=== PATIENT | male | born 1950 | race Caucasian/White ===

== ENCOUNTER 2016-09-12 11:58 | Day surgery (SDC) | payer MEDICARE, BC ==
--- NOTE | 2016-09-12 10:21 | History and Physical Report ---
CHIEF COMPLAINT/HISTORY OF CHIEF COMPLAINT: This patient with a history of an intractable lumbar radiculitis presents today for spinal cord stimulator replacement after successful trial. PAST MEDICAL HISTORY: Noncontributory. PAST SURGICAL HISTORY: Noncontributory. MEDICATIONS ON ADMISSION: List to be provided. ALLERGIES: FAMILY/PSYCHOSOCIAL HISTORY: SYSTEMS REVIEW: The patient is appropriate in no acute distress. The remainder of the systems review is noncontributory. PHYSICAL EXAMINATION: Height and weight are not known. Vital signs are not available. HEENT: Within normal limits. LUNGS: Clear. HEART: Regular rate and rhythm. ABDOMEN: Nontender. MUSCULOSKELETAL: Examination of the musculoskeletal system shows pain and tenderness of the lumbar spine. Range of motion produces pain into the hips and legs bilaterally. Ambulation - No assistive device utilized. NEUROLOGIC: Cranial nerves are intact. IMPRESSION: LUMBAR RADICULITIS, ICD10 CODE M54.16 AND M54.17. PLAN: The patient is here for implantation of a permanent spinal cord stimulator after the failure of all therapies and the success of the trial. The potential risks, side effects, and complications have all been carefully reviewed. He has been provided with information by way of the handle finisher and the office and clinic which explained the potential risks including dural puncture, nerve root injury and spinal headache. He understands the risks and has consented. We will implant the device on an outpatient basis although an overnight stay will be evaluated. REECE LORENZO D.O. Date & Time JOB NUMBER: [id number] MTDD
[~2016-09-12 11:58] MED LIST: ACETAMINOPHEN 1000MG/100 ML PREMIX IV ONE; ACETAMINOPHEN 325 MG TAB PO PRN; AL HYDROX/MAG HYDROX 30ML UD PO PRN; CEFAZOLIN 2 Gram 50 ML IVPB ONE; DIPHENHYDRAMINE HCL 25 MG CAPSULE PO PRN; DIPHENHYDRAMINE HCL IV 50 MG/ML VIAL IVP PRN; FAMOTIDINE 20MG TABLET PO ONE; HYDROCODONE/APAP 7.5/325MG TABLET PO PRN; HYDROMORPHONE HCL 2 MG/ML VIAL IM PRN; MECLIZINE 25 MG TABLET PO ONE; METOCLOPRAMIDE 10 MG TABLET PO ONE; METOCLOPRAMIDE 10 MG TABLET PO PRN; METOCLOPRAMIDE HCL 10 MG/2 ML VIAL IVP PRN; OXYCODONE/APAP 10MG-325MG TABLET PO PRN; SENNOSIDES/DOCUSATE SODIUM UD CAPSULE PO PRN; TEMAZEPAM 15 MG CAPSULE PO PRN
[2016-09-12] MEDS ORDERED: BUPIVACAINE 0.5% W/EPI MPF 30 ML VIAL IVP ONE (14:00)
[2016-09-12] MEDS ORDERED: FENTANYL PF 100MCG/2ML VIAL IV ONE (14:00)
[2016-09-12] MEDS ORDERED: *PACU ONLY* KETAMINE HCL 10 MG/ML (20ML) VIAL IV ONE (14:00)
[2016-09-12] MEDS ORDERED: LIDOCAINE 1% W/EPI 1:200,000 MPF 30ML SQ ONE (14:00)
[2016-09-12] MEDS ORDERED: PROPOFOL 10 MG/ML VIAL IV ONE (14:00)
[2016-09-12] MEDS ORDERED: LIDOCAINE 2% MDV (20MG/ML) 20ML VIAL IV ONE (14:00)
[2016-09-12] MEDS ORDERED: CEFAZOLIN 1G VIAL IM ONE (14:00)
[2016-09-12] MEDS ORDERED: FLUMAZENIL 1MG/10ML VIAL IV ONE (14:00)
[2016-09-12] MEDS ORDERED: MIDAZOLAM HCL 2MG/2ML VIAL IV ONE (14:00)
[2016-09-12] MEDS: HYDROMORPHONE HCL 1 MG/ML CPJ IM PRN (16:42)
[2016-09-12] MEDS: GABAPENTIN 300 MG CAPSULE PO SCH ×2 (17:19→22:21)
[2016-09-12] MEDS: 0.9 % SODIUM CHLORIDE 10ML SYR IVP SCH ×2 (17:22→22:55)
[2016-09-12] MEDS: OXYCODONE/APAP 10MG-325MG TABLET PO PRN (20:19)
[2016-09-12] MEDS ORDERED: SIMVASTATIN 20 MG TABLET PO SCH (22:00)
[2016-09-12] MEDS ORDERED: DULOXETINE HCL 30 MG CAPSULE.DR PO SCH (22:00)
[2016-09-12] MEDS: CEFAZOLIN 2 Gram 50 ML IVPB SCH (22:21)
[2016-09-13] MEDS: OXYCODONE/APAP 10MG-325MG TABLET PO PRN ×2 (02:40→10:41)
[2016-09-13] MEDS: HYDROMORPHONE HCL 1 MG/ML CPJ IM PRN (04:33)
[2016-09-13] MEDS: CEFAZOLIN 2 Gram 50 ML IVPB SCH ×2 (06:17→12:23)
[2016-09-13] MEDS: 0.9 % SODIUM CHLORIDE 10ML SYR IVP SCH ×2 (06:50→10:42)
[2016-09-13] MEDS ORDERED: BUPROPION HCL 150 MG TAB.SR.12H PO SCH (10:00)
[2016-09-13] MEDS: GABAPENTIN 300 MG CAPSULE PO SCH (10:40)
--- NOTE | 2016-09-13 15:33 | Operative Note - Ferro ---
DATE OF SURGERY: 09/12/16 PREOPERATIVE DIAGNOSIS: LUMBAR RADICULITIS, ICD-10 CODE = M54.16 AND M54.17. OPERATION: 1. FLUOROSCOPICALLY-GUIDED EPIDURAL ACCESS T12-L1 RIGHT OF THE MIDLINE. PLACEMENT OF SPINAL CORD STIMULATOR LEAD 1, A [employer] INFINION 16 WITH 16 ELECTRODES POSITIONED LEFT T7. 2. COMPLEX PROGRAMMING LEAD 1, 20 MINUTES. 3. FLUOROSCOPICALLY-GUIDED EPIDURAL ACCESS T11-12. PLACEMENT OF SPINAL CORD STIMULATOR LEAD 2, A [employer] 16 WITH 16 ELECTRODES POSITIONED RIGHT, T7. 4. COMPLEX PROGRAMMING LEAD 2, 20 MINUTES. 5. INCISION, SUBCUTANEOUS DISSECTION, AND ANCHORING OF LEAD 1 AND LEAD 2 TO SUPRASPINOUS FASCIA USING [employer] LOCKING ANCHORS. 6. INCISION, SUBCUTANEOUS DISSECTION, AND CREATION OF A SUBCUTANEOUS POUCH AT RIGHT POSTERIOR GLUTEAL MARGIN FOR PLACEMENT OF GENERATOR IDENTIFIED [employer] PROGRAMMABLE RECHARGEABLE. 7. TUNNELING BETWEEN POUCHES, PLACEMENT OF EXTERNAL PORTION OF LEAD 1 AND LEAD 2 INTO GENERATOR POUCH, EACH LEAD INTERFACED WITH A BIFURCATED EXTENSION, EACH BIFURCATED EXTENSION INTERFACED TO GENERATOR. 8. PLACEMENT OF GENERATOR POUCH SECURING TO POSTERIOR FASCIA USING NONABSORBABLE SUTURE. PLACEMENT OF LEADS INTO POUCH. 9. CLOSURE OF INCISIONS VICRYL FOR FASCIA AND A RUNNING SUBCUTICULAR VICRYL FOR SKIN. DERMABOND CLOSURE. 10. COMPLEX PROGRAMMING INTERNAL GENERATOR, HOME USE, TWO STIMULATORS, RECOVERY ROOM 20 MINUTES. SURGEON: REECE LORENZO D.O. ANESTHESIA: LOCAL SEDATION. ANESTHESIA PROVIDER: JOHNNY SALAS CRNA. INDICATION: This patient presents with a history of intractable lumbar radiculitis. Due to the failure of therapies, a spinal cord stimulator trial was conducted with 75 to 90% pain control. Due to the failure of all therapies and the success of the stimulator trial, the patient presents today for implantation of a permanent system. All of the potential risks, side-effects, complications carefully reviewed and discussed. Information given through the director of career resources also explaining potential risks, side-effects, and complications. He agreed, consented, and requested the implant. PROCEDURE: Intravenous line, vital sign monitoring, IV sedation, prepped and draped in sterile technique. Under imaging, the epidural interspace right of the midline at T11/12 and 12/1 infiltrated then two separate epidural needles with [id number] into the space. At 12-1, spinal cord stimulator lead 1, a [employer] Infinion 16 with 16 electrodes positioned left of the midline at T7. With the epidural access at T11-12, spinal cord stimulator lead 2 , a [employer] Infinion 16 with 16 electrodes positioned right of the midline T7. Complex programming of lead 1 over 20 minutes followed by complex programming of lead 2 over 20 minutes resulting in patterns of stimulation across the back and into the legs. Patient indicating we are in all of the areas of the pain in the legs. He was given the option to implant the system, continue to program or remove the system; he opted to implant. All questions repeated with the same response. At that point, the skin above and below the needles infiltrated, incision made, and subcutaneous dissection was conducted to the supraspinous fascia. Each lead was then anchored to the supraspinous fascia using an anchoring device, [employer] [place] and nonabsorbable suture. At the right posterior gluteal margin or a site picked by the patient for the generator, skin infiltrated, incision made, and subcutaneous dissection was conducted to form a pouch of suitable size and depth for the generator identified as a [employer] Programmable Rechargeable. After the pouch was formed, a tunneling tool was used to carry the leads into the generator pouch and each lead was interfaced with a bifurcated extension. Each bifurcated extension was then interfaced to the generator. Antibiotic irrigation and Bovie for hemostasis. The leads were placed in the pouch, the generator placed in the pouch, the generator secured to the fascia with nonabsorbable suture. The incisions were closed Vicryl for fascia and running subcuticular Vicryl for skin. A Dermabond closure was then used to approximate the edges of the wound. He was transported to the Recovery Room stable showing no side-effects from the procedure or the sedation. When fully awake and alert, complex programming in the Recovery Room performed over 20 minutes re-establishing stimulation and pain control to all of the appropriate areas. He was instructed on the use of the system, provided with information, error messaging, and then prepared for discharge. DISCHARGE INSTRUCTIONS: 1. The sites will remain clean and dry. No showering or bathing in any way that would disrupt the dressings although the Dermabond will allow showering. 2. Standard medications resumed including Levaquin, the antibiotic, 500 mg once a day for 14 days. 3. He will be seen in the office in 5-7 days to evaluate the incisions. Until then, his activities should stay low. Once the incisions are checked, he will be evaluated for increasing activities. All other instructions were provided, numbers to contact, problems given. He will be then discharged in the morning. REECE LORENZO D.O. Date & Time cc: Dr. Tiwari JOB NUMBER: [id number] MTDD
== END 2016-09-13 13:21 | disposition home or self-care (01) ==
LOC: SUR 11:58 → MEDSURG 16:04 → SUR 09-13 13:21
PROVIDERS: ATTEND Pain Medicine Interventional Pain Medicine
DX: M54.16 Radiculopathy, lumbar region (principal); M54.17 Radiculopathy, lumbosacral region; E78.00 Pure hypercholesterolemia, unspecified
CPT/HCPCS: 95972; 72020; 63685; 63650 ×2; 00300; J3490; J3010; J0690 ×2; J1170 ×2

== ENCOUNTER 2018-07-17 20:55 | Emergency (ER) | payer MEDICARE, BC ==
[2018-07-17] MEDS ORDERED: MORPHINE SULFATE 10 MG/ML VIAL IM ONE (21:08)
--- NOTE | 2018-07-17 21:11 | Emergency Department Record ---
History of Present Illness - General Chief complaint: Flank Pain Stated complaint: LEFT SIDE PAIN Time Seen by Provider: 07/17/18 20:56 Source: Patient, Family Mode of Arrival: Ambulatory Limitations: No limitations - History of Present Illness Initial comments: 68 yo male presents with 6 months of left flank pain. The pain has been essentially constant. It has been worse for about two weeks. He states it is sore to touch and hurts to move. He denies associated symptoms such as fever, cough, chills, chest pain, hematuria, rash, diarrhea, dysuria, swelling, radiation, trauma. He has right sided sciatica with a right sided nerve stimulator. No radicular symptoms on the left. No abdominal pain on the left. He has not discussed this pain with his PCP or his pain specialist to date. MD Complaint: Other (Left side pain) -: Month(s) (6) Location: Left flank Radiation: LLQ Severity: Moderate Quality: Sharp, Stabbing Consistency: Constant Improves with: Rest Worsens with: Movement, Palpation Reports: Denies other symptoms - Related Data Home Medications Medication Instructions Recorded Confirmed Last Taken Bupropion HCl [Bupropion HCl Sr] 150 mg PO BID 07/17/18 07/17/18 Unknown Duloxetine HCl [Cymbalta] 60 mg PO DAILY 07/17/18 07/17/18 Unknown Gabapentin 300 mg PO BID 07/17/18 07/17/18 Unknown Hydrocodone/Acetaminophen 1 each PO Q6H PRN 07/17/18 07/17/18 07/17/18 13:00 [Hydrocodone-Acetamin 10-325 mg] Previous Rx's Medication Instructions Recorded Amoxicillin/Potassium Clav 1 tab PO BID #14 tab 07/17/18 [Augmentin 875-125 Tablet] Allergies Allergy/AdvReac Type Severity Reaction Status Date / Time No Known Drug Allergies Allergy Verified 06/15/14 14:49 Review of Systems Constitutional: Denies: Chills, Fever, Malaise, Weakness Eyes: Denies: Eye discharge ENT: Denies: Congestion, Epistaxis, Throat pain Respiratory: Denies: Cough, Dyspnea, Hemoptysis, Stridor, Wheezes Cardiovascular: Denies: Chest pain, Dyspnea on exertion, Edema, Palpitations, Syncope Endocrine: Denies: Fatigue, Polydipsia, Polyuria Gastrointestinal: Denies: Abdominal pain, Diarrhea, Nausea, Vomiting Genitourinary: Denies: Dysuria, Frequency, Hematuria Musculoskeletal: Reports: Back pain. Denies: Arthralgia, Joint swelling, Myalgia, Neck pain Skin: Denies: Bruising, Change in color Neurological: Denies: Confusion, Headache, Numbness, Tingling, Tremors, Vertigo , Weakness Psychiatric: Denies: Anxiety Hematological/Lymphatic: Denies: Easy bleeding, Easy bruising Past Medical History - SOCIAL HISTORY Smoking Status: Former smoker Alcohol Use Comment: 6-12pack/week - RESPIRATORY Hx Respiratory Disorders: No - CARDIOVASCULAR Hx Cardio Disorders: No Comment:: high cholesterol - NEURO Hx Neuro Disorders: Yes Hx Neuropathy: Yes (RLE STATES COMES AND GOES) - GI Hx GI Disorders: Yes Hx Diverticulitis: Yes Hx of Polyps: Yes (colon) Comment:: states colon resection for bowel - Hx Genitourinary Disorders: No - ENDOCRINE Hx Endocrine Disorders: No - MUSCULOSKELETAL Hx Musculoskeletal Disorders: Yes Hx Arthritis: Yes Hx Back Injury: Yes (QUESTION FX BACK DURING [place]) - PSYCH Hx Psych Problems: Yes Hx Anxiety: Yes (CONTROLLED WITH MEDS) Hx Depression: Yes - HEMATOLOGY/ONCOLOGY Hx Hematology/Oncology Disorders: No Family Medical History Hx Cancer: Father *Cancer Comment: lung Hx Diabetes: Mother Hx Heart Disease: Father, Mother, Brother/Sister Hx HTN: Father, Mother, Brother/Sister Physical Exam - General General Appearance: Alert, Oriented x3, Cooperative, No acute distress Limitations: No limitations - Head Head exam: Atraumatic, Normocephalic, Normal inspection - Eye Eye exam: Normal appearance, PERRL, Conjunctival injection. negative: Scleral icterus - ENT ENT exam: Normal exam, Mucous membranes moist Ear exam: Normal external inspection Nasal Exam: Normal inspection Mouth exam: Normal external inspection - Neck Neck exam: Normal inspection - Respiratory Respiratory exam: Normal lung sounds bilaterally. negative: Accessory muscle use, Chest wall tenderness, Decreased breath sounds, Respiratory distress, Rhonchi, Stridor, Wheezes - Cardiovascular Cardiovascular Exam: Regular rate, Normal rhythm, Normal heart sounds - GI/Abdominal GI/Abdominal exam: Soft. negative: Distended, Guarding, Rebound, Rigid, Tenderness - Rectal Rectal exam: Deferred - exam: Deferred - Extremities Extremities exam: Normal inspection, Full ROM, Normal capillary refill. negative: Tenderness - Back Back exam: Reports: Normal inspection, CVA tenderness (L), Full ROM, Tenderness. Denies: CVA tenderness (R), Muscle spasm, Paraspinal tenderness, Rash noted, Vertebral tenderness - Neurological Neurological exam: Alert, Oriented X3. negative: Motor sensory deficit - Psychiatric Psychiatric exam: Normal affect, Normal mood. negative: Agitated, Anxious - Skin Skin exam: Dry, Intact, Normal color, Warm Course Vital Signs 07/17/18 21:00 Temperature 98.2 F Pulse Rate [ 90 Pulse Ox Probe] Respiratory 20 Rate Blood Pressure 148/73 [Left Arm] Pulse Ox 97 - Reevaluation(s) Reevaluation #1: 07/17/18 21:31 No acute changes on the CBC,BMP, or Lipase 07/17/18 22:09 CT is consistent with acute uncomplicated diverticulitis He is eating and drinking and pain is tolerable He is a good outpatient candidate. He will be referred back to his GI physician Medical Decision Making - Lab Data Result diagrams: 07/17/18 21:12 07/17/18 21:12 Disposition Disposition: Discharge Clinical Impression: Left flank pain, Diverticulitis Disposition: Home, Self-Care Condition: (1) Good Instructions: Flank Pain (ED), Abdominal Pain (ED), Diverticulitis (ED) Additional Instructions: Call your doctor for the next available follow up appointment Return to the ER for a recheck if worse, any new concerns or questions Take the prescriptions provided as directed Review this ER visit and the tests performed with your family doctor You have been referred back to Dr Moody of GI for follow up of the diverticulitis Prescriptions: Amoxicillin/Potassium Clav [Augmentin 875-125 Tablet] 1 tab PO BID #14 tab Referrals: JANINE MOODY [DOCTOR OF OSTEOPATH] - [facility] [Provider Group] Forms: Patient Portal Access Time of Disposition: 22:13 Quality - Quality Measures Quality Measures: N/A - Blood Pressure Screening Does Patient Have Any of the Following: No Blood Pressure Classification: Hypertensive Reading Systolic Measurement: 148 Diastolic Measurement: 73 Screening for High Blood Pressure: < Pre-Hypertensive BP, F/U Documented > [ [id number]] Pre-Hypertensive Follow-up Interventions: Referral to alternative/primary care provider.
[2018-07-17] MEDS ORDERED: 0.9 % SODIUM CHLORIDE 1,000 ML BAG IV ONE (21:16)
[2018-07-17] MEDS ORDERED: MORPHINE SULFATE 10 MG/ML VIAL IVP ONE (21:16)
[2018-07-17 21:18] LABS: BASO % 0.4 % (0-6); EOS % 2.5 % (0-6); GRAN % 72.5 % (47-80); HEMATOCRIT 45.6 % (42.0-52.0); HEMOGLOBIN 15.2 gm/dl (14.0-18.0); LYMPH % 15.9 % (16-45); MEAN CORPUSCULAR HEMOGLOBIN 30.3 pg (27-33); MEAN CORPUSCULAR HGB CONC 33.3 g/dl (32-36); MEAN PLATELET VOLUME 8.9 fl (7.4-10.4); MONO % 8.7 % (0-9); PLATELET COUNT 234 K/uL (130-400); RED BLOOD COUNT 5.01 M/uL (4.40-5.70); RED CELL DISTRIBUTION WIDTH 16.3 % (11.5-14.5); WHITE BLOOD COUNT W/O DIFF 8.3 K/uL (4.2-12.2)
[2018-07-17 21:27] LABS: BLOOD UREA NITROGEN 14 mg/dL (8-23); CREATININE 1.2 mg/dL (0.7-1.2); EST GLOMERULAR FILTRATION RATE > 60 mL/min
[2018-07-17 21:28] LABS: LIPASE 21 U/L (13-60)
[2018-07-17 21:30] LABS: GLUCOSE,RANDOM 114 mg/dL (74-109)
[2018-07-17 21:32] LABS: ALB/GLOB RATIO 1.4 (1.1-1.8); ALBUMIN 4.1 g/dL (4.0-5.0); ALKALINE PHOSPHATASE 81 U/L (55-149); ALT/SGPT 14 U/L (<41); AST/SGOT 13 U/L (10.0-50.0)
[2018-07-17] MEDS ORDERED: AMOXICILLIN/POTASSIUM CLAV 875MG/125MG TABLET PO ONE (22:11)
--- NOTE | 2018-07-21 14:14 | CT SCAN REPORT ---
EXAM: NONCONTRAST CT OF THE ABDOMEN AND PELVIS HISTORY: CHRONIC LEFT SIDED ABDOMINAL PAIN. TECHNIQUE: Noncontrast CT of the abdomen and pelvis was obtained. Comparison: CTA abdomen 08/04/09. FINDINGS: Minimal atelectasis in the medial right lower lobe. The lung bases are otherwise clear. Unremarkable noncontrast appearance of the liver, gallbladder, spleen, adrenal glands, and pancreas. No hydronephrosis. Rectosigmoid anastomosis is noted. Scattered colonic diverticulosis. Focally prominent diverticulum along the mid descending colon with associated fat stranding, compatible with acute diverticulitis. No associated fluid collection or free air. No additional areas of focal colonic thickening or inflammation. The appendix appears normal. The stomach is distended with ingested material. The small bowel is nondilated. No free air or free fluid. The urinary bladder is minimally distended, unremarkable. Minimal prostatic calcifications. Aortoiliac arterial access is tortuous and calcified without aneurysm dilatation. No acute osseous findings. Dextroscoliotic curvature of the lumbar spine with associated disk degeneration and facet joint arthrosis. A spinal stimulator device is noted. IMPRESSION: 1. FINDINGS CONSISTENT WITH ACUTE UNCOMPLICATED DIVERTICULITIS OF THE MID DESCENDING COLON. 2. ADDITIONAL INCIDENTAL AND CHRONIC FINDINGS DESCRIBED IN THE BODY OF THE REPORT. JOB NUMBER: [id number] [facility]
== END 2018-07-17 22:27 | disposition home or self-care (01) ==
LOC: ER 20:55
DX: K57.92 Diverticulitis of intestine, part unspecified, without perforation or abscess without bleeding (principal); Z87.891 Personal history of nicotine dependence
CPT/HCPCS: 99284 ×2; 96374; 83690; 85025; 80053; 74176; J2270; J7030